=== PATIENT | male | born 2000 | race Caucasian/White ===

== ENCOUNTER 2021-05-10 20:59 | Emergency (ER) | payer MEDICAID ==
[~2021-05-10] VITALS: Ht 167.6 cm; Wt 150.0 kg
[2021-05-10] MEDS ORDERED: PRED-554 PO (23:28)
[2021-05-10 23:32] VITALS: BP 129/84
== END 2021-05-10 23:51 | disposition home or self-care (01) ==
LOC: EMS 21:19
DX: T78.40XA Allergy, unspecified, initial encounter (principal); F12.90 Cannabis use, unspecified, uncomplicated; X58.XXXA Exposure to other specified factors, initial encounter
CPT/HCPCS: 99283; Z7502